=== PATIENT | male | born 1995 | race Two or more races ===

== ENCOUNTER → 2024-08-28 | Outpatient (CLI) | payer BC, SELFPAY ==
[2024-08-28 13:04] LABS: Misc Send Out* See Sep Rpt
[2024-09-12 03:05] LABS: Immunoglobulin G Subclass 1 785 mg/dL (382-929); Immunoglobulin G Subclass 2 342 mg/dL (241-700); Immunoglobulin G Subclass 3 67 mg/dL (22-178); Immunoglobulin G Subclass 4 38.3 mg/dL (4-86)
[2024-09-12 07:06] LABS: IgA, Serum* 286 mg/dL (47-310); IgE, Serum* 53 kU/L (114 OR LESS); IgM, Serum* 100 mg/dL (50-300); Immunoglobulin G Total 1260 mg/dL (600-1640)
== END | disposition home or self-care (01) ==
LOC: COPL 12:43
PROVIDERS: PCP Family Medicine; Referring Provider Otolaryngology Otolaryngology/Facial Plastic Surgery; Visit Provider Otolaryngology Otolaryngology/Facial Plastic Surgery
DX: J31.0 Chronic rhinitis (principal)
CPT/HCPCS: 36415; 82784; 82785; 82787; 86609; 86684